=== PATIENT | female | born 2000 | race African-American/Black ===

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

== ENCOUNTER 2020-07-04 21:40 | Emergency (ER) | payer MEDICAID ==
[~2020-07-04] VITALS: Ht 160 cm; Wt 54.4 kg
[~2020-07-04 21:40] MED LIST: AMOXICILLIN500 MG ORAL; AUGMENTIN 875-1 EAC1 ORAL; CEPHALEXIN500 M1 ORAL; IBUPROFEN600 MG ORAL; LIDOCAINE VISC100 ML ORAL; NAPROXEN500 M2 ORAL; PROMETHAZINE-C118 M1 ORAL
[2020-07-04 22:25] VITALS: BP 111/79
[2020-07-04] MEDS ORDERED: Ketorolac 30mg Inj IV ONE (22:45)
--- NOTE | 2020-07-04 22:46 | Emergency Room Report ---
History of Present Illness General Chief Complaint: Abdominal Pain Source: Patient Present Illness HPI Is a 20-year-old female with no past medical history. She presents with chief complaint abdominal pain. Onset for the 2 weeks now. Pain is kind of pulling sensation initially. Usually localized to the upper quadrant area. But tonight she has more sharp pain to the left upper quadrant. Pain is 7 out of 10. Now is sharp. No nausea vomiting or diarrhea. No fever chills. No constipation. No urinary complaint. Movement made it worse. Rest made it better. 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 Patient History Past Medical History: see triage record, old chart reviewed Past Surgical History: none Pertinent Family History: none Social History: Denies: smoking Last Menstrual Period: 06/15/20 Now: No Immunizations: other Reviewed Nursing Documentation: PMH: Agreed; PSxH: Agreed Nursing Documentation-PMH Past Medical History: No History, Except For Hx Asthma: Yes Review of Systems Eye: Denies: eye pain, blurred vision ENT: Denies: ear pain, nose congestion, throat swelling Respiratory: Denies: cough, shortness of breath Cardiovascular: Denies: chest pain, palpitations Gastrointestinal: Reports: abdominal pain; Denies: diarrhea, nausea, vomiting Musculoskeletal: Denies: back pain, joint pain Skin: Denies: rash Neurological: Denies: headache, numbness Endocrine: Denies: increased thirst, increased urine Hematologic/Lymphatic: Denies: easy bruising All Other Systems: negative except mentioned in HPI Physical Exam Vital Signs Date Time Temp Pulse Resp B/P (MAP) Pulse Ox O2 Delivery O2 Flow Rate FiO2 07/04/20 21:51 98.8 85 16 111/79 (90) 98 Room Air Vitals normal Sp02 EP Interpretation: reviewed, normal General Appearance: well appearing, no apparent distress, alert Head: normocephalic, atraumatic Eyes: bilateral eye PERRL, bilateral eye EOMI ENT: hearing grossly normal, normal pharynx Neck: full range of motion, supple, no meningismus Respiratory: chest non-tender, lungs clear, normal breath sounds Cardiovascular #1: regular rate, rhythm, no murmur Gastrointestinal: normal bowel sounds, no mass, no organomegaly, no bruit, non- distended, tenderness - Mild, left upper quadrant, decreased bowel sounds Musculoskeletal: back normal, normal range of motion, gait/station normal Psychiatric: mood/affect normal Medical Decision Making Diagnostic Impression: Primary Impression: Abdominal pain Qualified Codes: R10.84 - Generalized abdominal pain ER Course Patient with abdominal pain. No evidence of acute abdomen or obstruction. No evidence of pancreatitis. No evidence of urinary tract infection or ectopic pre gnancy. CT/MRI/US Diagnostic Results CT/MRI/US Diagnostic Results : Imaging Test Ordered: CT abdomen pelvis Impression Negative per radiologist Last Vital Signs Date Time Temp Pulse Resp B/P (MAP) Pulse Ox O2 Delivery O2 Flow Rate FiO2 07/04/20 22:25 98.8 86 16 111/79 98 Room Air Status: improved Disposition: HOME, SELF-CARE Condition: Stable Scripts Ibuprofen* (MOTRIN*) 600 Mg Tablet 600 MG ORAL Q8H PRN for FOR PAIN, #30 TAB 0 Refills Prov: Ranjit Flowers MD 07/05/20 Referrals: NON PHYSICIAN (PCP) Patient Instructions: Abdominal Pain, Adult Additional Instructions: Follow-up with your doctor in 7 days. Return if symptoms worsen. Ranjit Flowers MD Jul 04, 2020 22:46
[2020-07-04 23:00] VITALS: BP 113/71
[2020-07-04 23:00] LABS: APPEARANCE,URINE SLIGHTLY CLOUDY; BILIRUBIN, URINE NEGATIVE (NEGATIVE); GLUCOSE, URINE (UA) NEGATIVE (NEGATIVE); KETONES,URINE NEGATIVE (NEGATIVE); LEUKOCYTE ESTERASE ,URINE 1+ (NEGATIVE); NITRITE,URINE NEGATIVE (NEGATIVE); PH,URINE 5 (4.5-8.0); PROTEIN,URINE 1+ (NEGATIVE); UROBILINOGEN,URINE NORMAL MG/DL (0.0-1.0)
[2020-07-04 23:01] LABS: BASOPHILS % (AUTO) 0.8 % (0.0-2.0); EOSINOPHILS % (AUTO) 0.5 % (0.0-3.0); HEMATOCRIT 34.8 % (37.0-47.0); HEMOGLOBIN 10.9 G/DL (12.0-16.0); LYMPHOCYTES % (AUTO) 23.1 % (20.0-45.0); MEAN CORPUSCULAR VOLUME 87 FL (80-99); MONOCYTES % (AUTO) 6.1 % (1.0-10.0); NEUTROPHILS % (AUTO) 69.5 % (45.0-75.0); PLATELET COUNT 291 K/UL (150-450); RED BLOOD COUNT 3.98 M/UL (4.20-5.40); RED CELL DISTRIBUTION WIDTH 16.8 % (11.6-14.8); WHITE BLOOD COUNT 9.5 K/UL (4.8-10.8)
[2020-07-04 23:02] LABS: COLOR,URINE PALE YELLOW
[2020-07-04 23:17] LABS: ANION GAP 9 mmol/L (5-15); BLOOD UREA NITROGEN 6 mg/dL (7-18); CALCIUM 9.1 MG/DL (8.5-10.1); CARBON DIOXIDE 26 MMOL/L (21-32); CHLORIDE 105 MMOL/L (98-107); CREATININE 0.9 MG/DL (0.55-1.30); POTASSIUM 3.2 MMOL/L (3.5-5.1); SODIUM 140 MMOL/L (136-145)
[2020-07-04 23:21] LABS: ALANINE AMINOTRANSFERASE 14 U/L (12-78); ALBUMIN 4.1 G/DL (3.4-5.0); ALKALINE PHOSPHATASE 82 U/L (46-116); ASPARTATE AMINO TRANSFERASE 18 U/L (15-37); BILIRUBIN,TOTAL 0.4 MG/DL (0.2-1.0)
--- NOTE | 2020-07-05 00:21 | Diagnostic Imaging Report ---
EXAM: CT Abdomen and Pelvis Without Intravenous Contrast CLINICAL HISTORY: ABD PAIN TECHNIQUE: Axial computed tomography images of the abdomen and pelvis without intravenous contrast. CTDI is 4.1 mGy and DLP is 215.9 mGy-cm. One or more of the following dose reduction techniques were used: automated exposure control, adjustment of the mA and/or kV according to patient size, use of iterative reconstruction technique. Coronal and sagittal reformatted images were created and reviewed. COMPARISON: No relevant prior studies available. FINDINGS: Limitations: Study limited due to lack of IV contrast. Lung bases: Unremarkable. No mass. No consolidation. ABDOMEN: Liver: Unremarkable. Gallbladder and bile ducts: Unremarkable. No calcified stones. No ductal dilation. Pancreas: Unremarkable. No ductal dilation. Spleen: Unremarkable. No splenomegaly. Adrenals: Unremarkable. No mass. Kidneys and ureters: Unremarkable. No obstructing stones. No hydronephrosis. Stomach and bowel: Unremarkable. No obstruction. No mucosal thickening. PELVIS: Appendix: Normal appendix. Bladder: Unremarkable. No stones. Reproductive: Unremarkable as visualized. ABDOMEN and PELVIS: Intraperitoneal space: Unremarkable. No free air. No significant fluid collection. Bones/joints: No acute fracture. No dislocation. Soft tissues: Unremarkable. Vasculature: Unremarkable. No abdominal aortic aneurysm. Lymph nodes: Unremarkable. No enlarged lymph nodes. IMPRESSION: 1. Study limited due to lack of IV contrast. 2. Normal appendix. 3. Unremarkable study. 4. If there is continued concern, recommend repeating study with oral and IV contrast.
[2020-07-05] MEDS ORDERED: IBUPROFEN600 M1 ORAL (00:26)
[2020-07-05 00:30] VITALS: BP 113/71
== END 2020-07-05 00:30 | disposition home or self-care (01) ==
LOC: EMR 22:05
DX: R10.84 Generalized abdominal pain (principal); J45.909 Unspecified asthma, uncomplicated
CPT/HCPCS: 36415; 74176; 80053; 81003; 81025; 83690; 85025; 96374; J1885; Z7502; 99284

== ENCOUNTER 2020-07-28 22:02 | Emergency (ER) | payer MEDICAID ==
[~2020-07-28] VITALS: Ht 160 cm; Wt 59.0 kg
[~2020-07-28 22:02] MED LIST changes: +IBUPROFEN600 M1 ORAL
[2020-07-28] MEDS ORDERED: Cephalexin 500mg cap ORAL ONE (22:15)
[2020-07-28] MEDS ORDERED: CEPHALEXIN500 MG ORAL (22:17)
[2020-07-28 22:20] VITALS: BP 121/78
--- NOTE | 2020-07-28 22:56 | Emergency Room Report ---
History of Present Illness General Chief Complaint: Female Urogenital Problems Source: Patient Present Illness HPI 20-year-old female with no relevant past medical history here with several days of dysuria. Patient says that she has had dysuria and urinary frequency for several days. She has had urinary tract infections before and says that this feels similar. No fevers, chills, chest pain, palpitation, shortness of breath, back pain, abdominal pain, nausea, vomiting, diarrhea, dysuria. 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 COVID-19 Screening: Negative COVID-19 COVID-19 Testing Source: jeanette Patient History Last Menstrual Period: 07/12/20 Now: No Nursing Documentation-[facility] Past Medical History: No History, Except For Hx Asthma: Yes Review of Systems All Other Systems: negative except mentioned in HPI Physical Exam Vital Signs Date Time Temp Pulse Resp B/P (MAP) Pulse Ox O2 Delivery O2 Flow Rate FiO2 07/28/20 22:05 98.1 78 18 121/78 (92) 98 Room Air Sp02 EP Interpretation: reviewed, normal General Appearance: no apparent distress, alert, GCS 15, non-toxic Head: normocephalic, atraumatic Eyes: bilateral eye normal inspection, bilateral eye PERRL ENT: hearing grossly normal, normal pharynx, no angioedema, normal voice Neck: full range of motion, supple/symm/no masses Respiratory: chest non-tender, lungs clear, normal breath sounds, speaking full sentences Cardiovascular #1: regular rate, rhythm, no edema Cardiovascular #2: 2+ carotid (R), 2+ carotid (L), 2+ radial (R), 2+ radial (L), 2+ dorsalis pedis (R), 2+ dorsalis pedis (L) Gastrointestinal: normal bowel sounds, non tender, soft, non-distended, no guarding, no rebound Rectal: deferred Genitourinary: normal inspection, no CVA tenderness Musculoskeletal: back normal, normal range of motion, gait/station normal, non- tender Neurologic: alert, motor strength/tone normal, oriented x3, sensory intact, responsive, speech normal Psychiatric: judgement/insight normal, memory normal, mood/affect normal, no suicidal/homicidal ideation Lymphatic: no adenopathy Medical Decision Making Diagnostic Impression: Primary Impression: Dysuria Additional Impression: UTI (urinary tract infection) ER Course Laboratory Tests Test 07/28/20 22:48 Urine Color Yellow Urine Appearance Slightly cloudy Urine pH 5 (4.5-8.0) Urine Specific [place] 1.025 (1.005-1.035) Urine Protein 1+ (NEGATIVE) H Urine Glucose (UA) Negative (NEGATIVE) Urine Ketones 1+ (NEGATIVE) H Urine Blood Negative (NEGATIVE) Urine Nitrite Negative (NEGATIVE) Urine Bilirubin Negative (NEGATIVE) Urine Urobilinogen 1 MG/DL (0.0-1.0) H Urine Leukocyte Esterase 2+ (NEGATIVE) H Urine RBC Pending Urine WBC Pending Urine Squamous Epithelial Cells Pending Urine Bacteria Pending Urine HCG, Qualitative Negative (NEGATIVE) 20-year-old otherwise healthy female here with dysuria. Patient's urinalysis showed evidence of urinary tract infection. She had normal vital signs in the emergency department. No indication for lab work aside from urinalysis at this time. Urine test negative. Patient was to the emergency department and a prescription for Keflex. Told to come back to the emergency department worsening symptoms. Discharged in stable condition. Last Vital Signs Date Time Temp Pulse Resp B/P (MAP) Pulse Ox O2 Delivery O2 Flow Rate FiO2 07/28/20 22:20 98.1 18 121/78 98 Room Air 07/28/20 22:05 78 Disposition: HOME, SELF-CARE Condition: Stable Scripts Cephalexin* (KEFLEX*) 500 Mg Capsule 500 MG ORAL EVERY 12 HOURS, #14 CAP 0 Refills Prov: Rudy Garibay M.D. 07/28/20 [facility] Patient Instructions: Urinary Tract Infection Rudy Garibay M.D. Jul 28, 2020 22:56
[2020-07-28 23:01] LABS: BILIRUBIN, URINE NEGATIVE (NEGATIVE); GLUCOSE, URINE (UA) NEGATIVE (NEGATIVE); KETONES,URINE 1+ (NEGATIVE); LEUKOCYTE ESTERASE ,URINE 2+ (NEGATIVE); NITRITE,URINE NEGATIVE (NEGATIVE); PH,URINE 5 (4.5-8.0); PROTEIN,URINE 1+ (NEGATIVE); UROBILINOGEN,URINE 1 MG/DL (0.0-1.0)
[2020-07-28 23:17] LABS: APPEARANCE,URINE SLIGHTLY CLOUDY; COLOR,URINE YELLOW
[2020-07-28 23:42] VITALS: BP 126/82
== END 2020-07-28 23:42 | disposition home or self-care (01) ==
LOC: EMR 22:36
DX: N39.0 Urinary tract infection, site not specified (principal); R30.0 Dysuria; J45.909 Unspecified asthma, uncomplicated
CPT/HCPCS: 81003; 81025; 87086; Z7502; 99283

== ENCOUNTER 2020-09-18 11:41 | Emergency (ER) | payer MEDICAID ==
[~2020-09-18] VITALS: Ht 160 cm; Wt 56.7 kg
[~2020-09-18 11:41] MED LIST changes: +CEPHALEXIN500 MG ORAL
[2020-09-18 11:47] VITALS: BP 106/69
--- NOTE | 2020-09-18 11:53 | Emergency Room Report ---
History of Present Illness General Chief Complaint: Female Urogenital Problems Source: Patient Present Illness HPI The patient presents with dysuria. The dysuria has began yesterday. She rates the pain 5/10. It is mainly when she is urinating. She denies any hematuria. She denies back pain or flank pain. There is no nausea, vomiting or change in bowel habits. She denies fevers or chills. Last menstruation was August 16. She is not sure if she is or not. She denies exposure to Covid positive contacts. 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 COVID-19 Screening: Negative COVID-19 COVID-19 Testing Source: nasal Patient History Past Medical History: see triage record, asthma Social History: Reports: smoking Social History Narrative From home Last Menstrual Period: 08/16/20 Reviewed Nursing Documentation: PMH: Agreed; PSxH: Agreed Nursing Documentation-PMH Past Medical History: No History, Except For Hx Asthma: Yes Review of Systems Constitutional: Reports: see HPI Gastrointestinal: Reports: see HPI Genitourinary: Reports: see HPI Musculoskeletal: Reports: see HPI Hematologic/Lymphatic: Reports: see HPI Physical Exam Vital Signs Date Time Temp Pulse Resp B/P (MAP) Pulse Ox O2 Delivery O2 Flow Rate FiO2 09/18/20 11:47 98.8 74 16 106/69 (81) 99 Room Air Sp02 EP Interpretation: reviewed, normal General Appearance: well appearing, no apparent distress, GCS 15, non-toxic Head: normocephalic Eyes: bilateral eye normal inspection, bilateral eye PERRL, bilateral eye EOMI ENT: other - Wearing a mask Neck: full range of motion Respiratory: normal inspection Cardiovascular #1: regular rate, rhythm Cardiovascular #2: 2+ radial (R) Gastrointestinal: normal inspection Genitourinary: no CVA tenderness Musculoskeletal: gait/station normal Neurologic: alert, grossly normal Psychiatric: mood/affect normal Skin: warm/dry, other - Fully dressed Medical Decision Making Diagnostic Impression: Primary Impression: UTI (urinary tract infection) Qualified Codes: N30.00 - Acute cystitis without hematuria ER Course Patient presents with 2 days of dysuria. There are no systemic symptoms. Differential includes UTI, pyelonephritis amongst others. needs to be excluded. Urinalysis is indicated. Patient is given a dose of Tylenol. Urinalysis with pyuria. test negative. Macrobid and Pyridium given. Discussed findings and treatment plan with patient. Patient stable for outpatient observation and treatment. Laboratory Tests Test 09/18/20 12:00 Urine Color Yellow Urine Appearance Slightly cloudy Urine pH 6 (4.5-8.0) Urine Specific [place] 1.010 (1.005-1.035) Urine Protein 2+ (NEGATIVE) H Urine Glucose (UA) Negative (NEGATIVE) Urine Ketones Negative (NEGATIVE) Urine Blood 2+ (NEGATIVE) H Urine Nitrite Negative (NEGATIVE) Urine Bilirubin Negative (NEGATIVE) Urine Urobilinogen 1 MG/DL (0.0-1.0) H Urine Leukocyte Esterase 3+ (NEGATIVE) H Urine RBC 2-4 /HPF (0 - 2) H Urine WBC 20-30 /HPF (0 - 2) H Urine Squamous Epithelial Cells Moderate /LPF (NONE/OCC) H Urine Bacteria Few /HPF (NONE) Urine Mucus Few /LPF (NONE/OCC) H Urine HCG, Qualitative Negative (NEGATIVE) Last Vital Signs Date Time Temp Pulse Resp B/P (MAP) Pulse Ox O2 Delivery O2 Flow Rate FiO2 09/18/20 13:35 98.8 70 19 112/67 97 Room Air Status: improved Disposition: HOME, SELF-CARE Condition: Improved Scripts Phenazopyridine Hcl* (PYRIDIUM*) 200 Mg Tablet 200 MG ORAL THREE TIMES A DAY, #9 TAB 0 Refills Prov: Judah Gao MD 09/18/20 Nitrofurantoin Monohyd/M-Cryst* (MACROBID 100 MG*) 100 Mg Capsule 100 MG ORAL EVERY 12 HOURS, #14 CAP Prov: Judah Gao MD 09/18/20 Judah Gao MD Sep 18, 2020 11:53
[2020-09-18] MEDS ORDERED: Acetaminophen 500mg (ES) tab ORAL ONE (12:00)
--- NOTE | 2020-09-18 12:08 | NUR ---
ED Nurse Note: Collected urine then sent.
[2020-09-18 12:36] LABS: APPEARANCE,URINE SLIGHTLY CLOUDY; BILIRUBIN, URINE NEGATIVE (NEGATIVE); GLUCOSE, URINE (UA) NEGATIVE (NEGATIVE); KETONES,URINE NEGATIVE (NEGATIVE); LEUKOCYTE ESTERASE ,URINE 3+ (NEGATIVE); NITRITE,URINE NEGATIVE (NEGATIVE); PH,URINE 6 (4.5-8.0); PROTEIN,URINE 2+ (NEGATIVE); UROBILINOGEN,URINE 1 MG/DL (0.0-1.0)
[2020-09-18 13:00] LABS: COLOR,URINE YELLOW
[2020-09-18] MEDS ORDERED: NITROFURANTOIN100 M2 ORAL (13:19)
[2020-09-18] MEDS ORDERED: PHENAZOPYRIDIN200 MG ORAL (13:19)
[2020-09-18] MEDS ORDERED: Phenazopyridine 200mg tab ORAL ONE (13:30)
--- NOTE | 2020-09-18 13:34 | NUR ---
ER DISCHARGE NOTE: Patient is cleared to be discharged per ERMD, pt is aox4, on room air, with stable vital signs. pt was given dc and prescription instructions, pt was able to verbalize understanding, pt id band removed. pt is able to ambulate with steady gait. pt took all belongings. Pt educated on UTI.
[2020-09-18 13:35] VITALS: BP 112/67
== END 2020-09-18 13:35 | disposition home or self-care (01) ==
LOC: EMR 12:39
DX: N30.00 Acute cystitis without hematuria (principal); F17.200 Nicotine dependence, unspecified, uncomplicated
CPT/HCPCS: 81003; 81025; 87086; Z7502; 99283